=== PATIENT | female | born 1995 | race Caucasian/White ===

== ENCOUNTER 2019-11-05 01:52 | Emergency (ER) | payer OTHER ==
[~2019-11-05] VITALS: Ht 167.6 cm; Wt 65.8 kg
== END 2019-11-05 09:25 | disposition home or self-care (01) ==
LOC: ER 01:52
DX: O20.0 Threatened abortion (principal); O26.891 Other specified pregnancy related conditions, first trimester; R10.2 Pelvic and perineal pain

== ENCOUNTER 2019-11-17 14:21 | Inpatient (IN) | payer OTHER ==
[~2019-11-17] VITALS: Ht 160 cm; Wt 63.5 kg
--- NOTE | 2019-11-17 14:29 | NUR ---
PACIENTE FEMINA ALERETA Y ORIENTADA REFERIDA POR DR: MUSA SMITH POR EMBARAZO EPTOPICO. PROCESO DE ADMISION TO OR.
[2019-11-18] MEDS ORDERED: CODE1TAB37 PO (09:52)
[2019-11-18] MEDS ORDERED: NAPR500T14 PO (09:53)
== END 2019-11-18 10:46 | disposition home or self-care (01) | DRG 819 ==
LOC: ER 14:21 → SEC-K 14:56 → OB/GYN 18:34
PROVIDERS: ADMIT Obstetrics & Gynecology
PROC: 0UT54ZZ Resection of Right Fallopian Tube, Percutaneous Endoscopic Approach (ICD-10-PCS; principal; 2019-11-17 17:00)
PROC: 10T24ZZ Resection of Products of Conception, Ectopic, Percutaneous Endoscopic Approach (ICD-10-PCS; 2019-11-17 17:00)
DX: O00.102 Left tubal pregnancy without intrauterine pregnancy (principal)